=== PATIENT | male | born 1995 | race Caucasian/White ===

== ENCOUNTER 2017-03-14 19:28 | Emergency (ER) | payer SELFPAY ==
[2017-03-14 19:29] VITALS: BMI 21.2
[2017-03-14 19:41] VITALS: TEMP 98.2; O2SAT 99
[2017-03-14] MEDS ORDERED: Naproxen 550 mg Tab PO STA (20:04)
--- NOTE | 2017-03-14 20:04 | C.PDOC ---
History Of Present Illness The patient, a 21 y/o male, presents to the ED for evaluation of a toothache which began 1 day ago. Patient states he was told several years ago that he has a "cracked tooth" which needs removal. Patient was unable to follow through with the removal because of insurance issues. Patient now has pain that is worsened when he eats/chews. Otherwise, patient denies fever, chills, facial swelling, headache, or drooling. Time Seen by Provider: 03/14/17 19:46 Chief Complaint (Nursing): Dental Pain History Per: Patient History/Exam Limitations: no limitations Onset/Duration Of Symptoms: Days Current Symptoms Are (Timing): Still Present Quality: Positive for: Aching, "Pain" Additional History Per: Patient Past Medical History Reviewed: Historical Data, Nursing Documentation, Vital Signs Vital Signs: Last Vital Signs Temp 98.2 F 03/14/17 19:39 Pulse 72 03/14/17 20:28 Resp 18 03/14/17 20:28 BP 131/85 03/14/17 20:28 Pulse Ox 99 03/14/17 23:26 - Medical History PMH: Denies: Diabetes, Hepatitis, HIV, HTN, Chronic Kidney Disease, Seizures, Sexually Transmitted Disease Surgical History: Appendectomy - [facility] Procedures LIMB SHORTENING PROCEDURES, TARSALS AND METATARSAL (11/17/14) OTHER PLASTIC OPS TENDON (11/17/14) REPAIR OF CLAW TOE (11/17/14) Family History: States: Unknown Family Hx - Social History Hx Tobacco Use: Yes Hx Alcohol Use: No Hx Substance Use: Yes - Immunization History Hx Tetanus Toxoid Vaccination: No Hx Influenza Vaccination: No Hx Pneumococcal Vaccination: No Review Of Systems Except As Marked, All Systems Reviewed And Found Negative. Constitutional: Positive for: Other (+toothache. no facial swelling. no drooling ). Negative for: Fever, Chills Skin: Negative for: Other Neurological: Negative for: Headache Physical Exam - Physical Exam Appears: Non-toxic, No Acute Distress Skin: Normal Color, Warm, Dry Head: Atraumatic, Normacephalic, No Swelling, No Other (facial swelling) Eye(s): bilateral: Normal Inspection, EOMI Oral Mucosa: Moist, No Drooling, No Trismus Tongue: No Swelling, No Other (drooling ) Teeth: Caries (two), Other (+impacted right lower posterior molar. severe decay to 1st and 2nd right lower molars with only roots protruding ) Gingiva: Erythema (localized around region of right lower molar ), Swelling ( localized around right lower molar ), No Abscess, No Other (no fluctuant mass) Throat: Normal Neck: Normal ROM, Supple Neurological/Psych: Oriented x3, Normal Speech, Normal Cognition Gait: Steady ED Course And Treatment O2 Sat by Pulse Oximetry: 99 (on RA) Pulse Ox Interpretation: Normal Progress Note: Patient received Naproxen PO and Penicillin PO. Disposition Counseled Patient/Family Regarding: Diagnosis, Need For Followup, Rx Given - Disposition Disposition: HOME/ ROUTINE Disposition Time: 20:19 Condition: GOOD Additional Instructions: Please follow up in dental clinic at [facility] call [phone] [facility] at [address] [place] [address] meds as directed Return to ER if worse Prescriptions: Naproxen [Naprosyn] 1 tab PO BID PRN #25 tab PRN Reason: Pain Penicillin VK [Pen-Vee K] 2 tab PO BID #28 tab Instructions: Dental Caries (ED) - Clinical Impression Clinical Impression: Dental caries - PA / ASBESTOS REMOVER / Resident Statement MD/DO has reviewed & agrees with the documentation as recorded. - Scribe Statement The provider has reviewed the documentation as recorded by the Scribe (Soraya Capellan) All medical record entries made by the Scribe were at my direction and personally dictated by me. I have reviewed the chart and agree that the record accurately reflects my personal performance of the history, physical exam, medical decision making, and the department course for this patient. I have also personally directed, reviewed, and agree with the discharge instructions and disposition.
[2017-03-14] MEDS ORDERED: Naproxen 550 mg Tab PO ONE (20:15)
[2017-03-14 20:29] VITALS: BP 131/85; PULSE 72; RESP 18
== END 2017-03-14 20:28 | disposition home or self-care (01) ==
LOC: C.ER 19:28
DX: K02.9 Dental caries, unspecified (principal)

== ENCOUNTER 2019-03-16 15:21 | Emergency (ER) | payer SELFPAY ==
[2019-03-16 15:21] VITALS: BMI 21.2
[2019-03-16 15:34] VITALS: O2SAT 99
[2019-03-16] MEDS ORDERED: Lidocaine 2% Inj (20ml) INFIL STA (15:44)
[2019-03-16] MEDS ORDERED: Lidocaine 2% MPF (5 ml) Inj ONE (15:50)
[2019-03-16 16:39] VITALS: BP 130/76; PULSE 86; RESP 18; TEMP 98.4
--- NOTE | 2019-03-16 18:52 | C.PDOC ---
History Of Present Illness 23 y/o male comes in to ED complaining of an abscess and swelling to left testicular area. States that the area has been increasing in size over the past week. Denies pain with urination, fever,abdominal pain, nausea, or vomiting. Denies trauma. Time Seen by Provider: 03/16/19 15:38 Chief Complaint (Nursing): Abnormal Skin Integrity History Per: Patient History/Exam Limitations: no limitations Onset/Duration Of Symptoms: Days Current Symptoms Are (Timing): Still Present Past Medical History Reviewed: Historical Data, Nursing Documentation, Vital Signs Vital Signs: Last Vital Signs Temp 98.4 F 03/16/19 16:35 Pulse 86 03/16/19 16:35 Resp 18 03/16/19 16:35 BP 130/76 03/16/19 16:35 Pulse Ox 99 03/16/19 16:35 - Medical History PMH: Denies: Diabetes, Hepatitis, HIV, HTN, Chronic Kidney Disease, Seizures, Sexually Transmitted Disease Surgical History: Appendectomy - [facility] Procedures LIMB SHORTENING PROCEDURES, TARSALS AND METATARSAL (11/17/14) OTHER PLASTIC OPS TENDON (11/17/14) REPAIR OF CLAW TOE (11/17/14) Family History: States: No Known Family Hx - Social History Hx Tobacco Use: Yes Hx Alcohol Use: No Hx Substance Use: Yes (daily use of marijuana) - Immunization History Hx Tetanus Toxoid Vaccination: No Hx Influenza Vaccination: No Hx Pneumococcal Vaccination: No Review Of Systems Except As Marked, All Systems Reviewed And Found Negative. Constitutional: Negative for: Fever, Chills Gastrointestinal: Negative for: Nausea, Vomiting, Abdominal Pain Genitourinary: Positive for: Other (Swelling and abscess of left testicular area). Negative for: Dysuria Physical Exam - Physical Exam Appears: Non-toxic, No Acute Distress Skin: Warm, Dry Head: Atraumatic Eye(s): bilateral: Normal Inspection Oral Mucosa: Moist Neck: Supple Male Genital: Other (large fluctuant abscess noted to left scrotal area, mild erythema) Extremity: Bilateral: Atraumatic, Normal ROM Neurological/Psych: Oriented x3, Normal Speech ED Course And Treatment O2 Sat by Pulse Oximetry: 99 (RA) Pulse Ox Interpretation: Normal - Incision & Drainage Of Abscess Anesthesia: Lidocaine 2% Procedure: Drained Pus (10cc), Cultures Obtained And Sent To Lab Medical Decision Making Medical Decision Making: Plan: --Wound Culture --I&D Disposition - Disposition Disposition: HOME/ ROUTINE Disposition Time: 16:25 Condition: IMPROVED Additional Instructions: OLY ROCHA, thank you for letting us take care of you today. The emergency medical care you received today was directed at your acute symptoms. If you were prescribed any medication, please fill it and take as directed. It may take several days for your symptoms to resolve. Return to the Emergency Depa rtment if your symptoms worsen, do not improve, or if you have any other problems. Please contact your doctor or call one of the physicians/clinics you have been referred to that are listed on the Patient Visit Information form that is included in your discharge packet. Bring any paperwork you were given at discharge with you along with any medications you are taking to your follow up visit. Our treatment cannot replace ongoing medical care by a primary care provider outside of the emergency department. Thank you for allowing the [facility] team to be part of your care today. Follow up with the emergency room in 2 days for a wound check and further evaluation. Prescriptions: Cephalexin [Keflex] 500 mg PO TID #21 capsule Ibuprofen [Motrin] 600 mg PO Q6 PRN #20 tab PRN Reason: Pain, Moderate (4-7) Sulfamethoxazole/Trimethoprim [Bactrim DS 800 mg-160 mg] 1 tab PO BID #14 tab Instructions: Skin Abscess Forms: Hole 19 (Bangladeshi) - Clinical Impression Clinical Impression: Abscess - Scribe Statement The provider has reviewed the documentation as recorded by the Ernestine Silverio Provider Attestation: All medical record entries made by the Ernestine were at my direction and personally dictated by me. I have reviewed the chart and agree that the record accurately reflects my personal performance of the history, physical exam, medical decision making, and the department course for this patient. I have also personally directed, reviewed, and agree with the discharge instructions and disposition.
== END 2019-03-16 16:38 | disposition home or self-care (01) ==
LOC: C.ER 15:21
DX: N49.2 Inflammatory disorders of scrotum (principal)

== ENCOUNTER 2019-03-18 16:49 | Emergency (ER) | payer OTHER ==
[2019-03-18 16:56] VITALS: BP 121/63; PULSE 70; TEMP 97.5; O2SAT 100; BMI 22.8
--- NOTE | 2019-03-18 17:18 | C.PDOC ---
History Of Present Illness 23 y/o male returns to the ED today for wound check. Patient is s/p I&D 2 days ago. He denies fever or chills. Patient has no complaints. Time Seen by Provider: 03/18/19 16:58 Chief Complaint (Nursing): Wound Check History Per: Patient History/Exam Limitations: no limitations Onset/Duration Of Symptoms: Days Ago (2) Current Symptoms Are (Timing): Better Past Medical History Reviewed: Historical Data, Nursing Documentation, Vital Signs Vital Signs: Last Vital Signs Temp 97.5 F L 03/18/19 16:53 Pulse 70 03/18/19 16:53 Resp 20 03/18/19 16:53 BP 121/63 03/18/19 16:53 Pulse Ox 100 03/18/19 16:53 - Medical History PMH: No Chronic Diseases Denies: Diabetes, Hepatitis, HIV, HTN, Chronic Kidney Disease, Seizures, Sexually Transmitted Disease Surgical History: Appendectomy - [facility] Procedures LIMB SHORTENING PROCEDURES, TARSALS AND METATARSAL (11/17/14) OTHER PLASTIC OPS TENDON (11/17/14) REPAIR OF CLAW TOE (11/17/14) Family History: States: No Known Family Hx - Social History Hx Tobacco Use: Yes Hx Alcohol Use: No Hx Substance Use: Yes (daily use of marijuana) - Immunization History Hx Tetanus Toxoid Vaccination: No Hx Influenza Vaccination: No Hx Pneumococcal Vaccination: No Review Of Systems Constitutional: Negative for: Fever, Chills Respiratory: Negative for: Shortness of Breath Gastrointestinal: Negative for: Abdominal Pain Skin: Positive for: Lesions (healing I&D wound) Neurological: Negative for: Weakness Physical Exam - Physical Exam Appears: Well, Non-toxic, No Acute Distress Skin: Warm, Dry, No Rash Head: Atraumatic, Normacephalic Eye(s): bilateral: Normal Inspection Oral Mucosa: Moist Neck: Normal ROM Chest: Symmetrical Respiratory: No Accessory Muscle Use Gastrointestinal/Abdominal: Soft, No Distention Male Genital: Other (1 cm wound to the left side of the groin, w/ packing in place; No erythema, swelling, or induration) Extremity: Bilateral: Atraumatic, Normal ROM (x 4) Neurological/Psych: Oriented x3, Normal Speech Gait: Steady ED Course And Treatment O2 Sat by Pulse Oximetry: 100 (RA) Pulse Ox Interpretation: Normal Medical Decision Making Medical Decision Making: Impression: Visit for wound check. Packing was removed by me and the wound has no purulent material left and no to be re-packed. Plan: Patient is stable for discharge home. Educated regarding wound care and follow- up instructions. Disposition - Disposition Referrals: [facility] [Outside] Disposition: HOME/ ROUTINE Disposition Time: 17:17 Condition: GOOD Additional Instructions: TAKE MEDICATIONS PRESCRIBED. RETURN IF WORSENED. Instructions: Boil (DC) Forms: [employer] ([place]wana) - Clinical Impression Clinical Impression: Abscess, Abscess packing removal - PA / EXPLOSIVES ENGINEER / Resident Statement MD/DO has reviewed & agrees with the documentation as recorded. - Scribe Statement The provider has reviewed the documentation as recorded by the Scribe Sue Marie All medical record entries made by the Rajeshibsimone were at my direction and personally dictated by me. I have reviewed the chart and agree that the record accurately reflects my personal performance of the history, physical exam, medical decision making, and the department course for this patient. I have also personally directed, reviewed, and agree with the discharge instructions and disposition.
[2019-03-18 17:23] VITALS: RESP 18
== END 2019-03-18 17:23 | disposition home or self-care (01) ==
LOC: C.ER 16:49
DX: Z48.00 Encounter for change or removal of nonsurgical wound dressing (principal); L02.214 Cutaneous abscess of groin